=== PATIENT | female | born 1995 | race Caucasian/White ===

== ENCOUNTER 2017-03-10 09:31 | Emergency (ER) | payer OTHER ==
[~2017-03-10] VITALS: Ht 172.7 cm; Wt 88.5 kg
--- NOTE | 2017-03-10 09:51 | PHYS DOC ---
Adult General Chief Complaint Chief Complaint: FOOT INJURY PAIN [facility] HPI Patient is a 22 year old F who presents with L foot pain that started after an injury 4 days ago. She states that a table dropped on her left fifth toe. Her pain is worse with movement, weightbearing and palpation. Her pain does not radiate. Her pain is dull and constant. She has no other associated symptoms and no other exacerbating or relieving factors. Review of Systems Review of Systems Constitutional: Denies fever or chills [] Eyes: Denies change in visual acuity, redness, or eye pain [] HENT: Denies nasal congestion or sore throat [] Respiratory: Denies cough or shortness of breath [] Cardiovascular: No additional information not addressed in HPI [] GI: Denies abdominal pain, nausea, vomiting, bloody stools or diarrhea [] : Denies dysuria or hematuria [] Musculoskeletal: Denies back pain Integument: Denies rash or skin lesions [] Neurologic: Denies headache, focal weakness or sensory changes [] Endocrine: Denies polyuria or polydipsia [] All other systems were reviewed and found to be within normal limits, except as documented in this note. Family History Family History No pertinent family medical history was reported Current Medications Current Medications Current medications were reviewed Allergies Allergies No known allergies Physical Exam Physical Exam Constitutional: Well developed, well nourished, no acute distress, non-toxic appearance. [] HENT: Normocephalic, atraumatic Eyes: EOMI, conjunctiva normal, no discharge. [] Neck: Normal range of motion, no tenderness, supple, no stridor. [] Cardiovascular:Heart rate regular rhythm, no murmur [] Lungs & Thorax: Bilateral breath sounds clear to auscultation [] Skin: Warm, dry, no erythema, no rash. [] Extremities: no cyanosis, no clubbing, ROM intact, no edema. [] Tenderness over the left MTP on the dorsal foot. No obvious signs of injury Neurologic: Alert and oriented X 3, normal motor function, normal sensory function, no focal deficits noted. [] Psychologic: Affect normal, judgement normal, mood normal. [] Current Patient Data Vital Signs Vital Signs Date Time Temp Pulse Resp B/P (MAP) Pulse Ox O2 Delivery O2 Flow Rate FiO2 03/10/17 09:31 98.1 97 18 100 Room Air EKG EKG [] Radiology/Procedures Radiology/Procedures Left foot x-ray Impressions: Indication: Pain, dropped a table on foot Tuesday. Technique: 3 views of the left foot are submitted for review. No comparison is available. Findings: There is no fracture or dislocation. There is no soft tissue swelling. Impression: Negative for fracture. Course & Med Decision Making Course & Med Decision Making Pertinent Labs and Imaging studies reviewed. (See chart for details) [] Dragon Disclaimer Dragon Disclaimer This electronic medical record was generated, in whole or in part, using a voice recognition dictation system. Departure Departure: Impression: Primary Impression: Foot pain Disposition: HOME, SELF-CARE Condition: STABLE Referrals: PCP,NO (PCP) Patient Instructions: Foot Contusion Additional Instructions: Delmis was seen in the emergency department for foot pain. No emergency medical condition was found on history or physical exam. She did have a normal x-ray. She was placed in a postop shoe. She is advised to use lidocaine patches and Voltaren gel as needed for pain management. She is advised follow-up with her primary care doctor or podiatry as needed for further management. Scripts Diclofenac Sodium (VOLTAREN) 100 Gm Gel..gram. 1 GM TP QID, #100 GM 2 Refills Prov: REAGAN MOTA MD 03/10/17 Problem Qualifiers Primary Impression: Foot pain Laterality: left Qualified Codes: M79.672 - Pain in left foot REAGAN MOTA MD Mar 10, 2017 09:51
[2017-03-10] MEDS ORDERED: IBUPROFEN 600 MG TABLET. PO ONE (10:15)
--- NOTE | 2017-03-10 10:21 | RAD ---
Indication: Pain, dropped a table on foot Tuesday. Technique: 3 views of the left foot are submitted for review. No comparison is available. Findings: There is no fracture or dislocation. There is no soft tissue swelling. Impression: Negative for fracture.
[2017-03-10] MEDS ORDERED: DICL100G18 TP (10:52)
[2017-03-10 11:10] VITALS: BP 113/70
== END 2017-03-10 11:10 | disposition home or self-care (01) ==
LOC: ER 09:31
DX: M79.672 Pain in left foot (principal); W20.8XXA Other cause of strike by thrown, projected or falling object, initial encounter; Y93.89 Activity, other specified; Y99.8 Other external cause status; Y92.89 Other specified places as the place of occurrence of the external cause
CPT/HCPCS: 73630; 99284